=== PATIENT | male | born 1985 | race Caucasian/White ===

== ENCOUNTER 2021-05-18 18:45 | Emergency (ER) | payer OTHER ==
[2021-05-18 20:02] LABS: HEMOGLOBIN 17.2 gm/dl (14.0-17.5); RED BLOOD COUNT 5.21 M/UL (4.20-5.50); WHITE BLOOD COUNT 11.4 K/UL (4.5-11.0)
[2021-05-18 20:17] LABS: BUN/CREATININE RATIO 12 (0-10)
[2021-05-18] MEDS ORDERED: VOLTAREN EC 5050 MG PO (20:53)
[2021-05-18] MEDS ORDERED: MUPIROCIN30 GM TP (20:54)
== END 2021-05-18 21:03 | disposition home or self-care (01) ==
LOC: ER1 18:45
PROVIDERS: Emergency Medicine
DX: S39.012A Strain of muscle, fascia and tendon of lower back, initial encounter (principal); S20.219A Contusion of unspecified front wall of thorax, initial encounter; S00.81XA Abrasion of other part of head, initial encounter; S80.212A Abrasion, left knee, initial encounter; S80.211A Abrasion, right knee, initial encounter; Z23 Encounter for immunization; V49.40XA Driver injured in collision with unspecified motor vehicles in traffic accident, initial encounter; Y92.410 Unspecified street and highway as the place of occurrence of the external cause
CPT/HCPCS: 70450; 71260; 72125; 72128; 72131; 72170; 73562; 80053; 85025; 90471; 90715; 99284; Q9967